=== PATIENT | male | born 1970 | race Two or more races ===

== ENCOUNTER 2018-07-14 16:26 | Emergency (ER) | payer MEDICAID ==
[~2018-07-14] VITALS: Ht 175.3 cm; Wt 86.2 kg
--- NOTE | 2018-07-14 16:22 | NUR ---
ED Nurse Note: pt brought in by gadiel Ortiz c/o heroin withdrawal sx, sleep insomnia, nausea, body ache and hand tremors per pt report. Pt reports he was at [facility] yesterday but didn't receive any help and was concerned. Pt currently homeless, req senior care. pt AA&ox4, gcs=15, skin warm and dry, resp even and unlabored on RA, no active dry heaves nor vomiting noted at this time, vss, sinus tach on potline monitor, will cont monitor. Report given to SONJA Kenney.
[2018-07-14] MEDS ORDERED: Phenytoin 500 MG in NS 110 ML IVPB STA (16:40)
[2018-07-14 16:45] VITALS: BP 118/83
[2018-07-14] MEDS ORDERED: Phenytoin 100mg cap ORAL ONE ×2 (16:45→18:00)
[2018-07-14] MEDS ORDERED: Ketorolac 30mg Inj IV ONE ×2 (16:45→19:30)
--- NOTE | 2018-07-14 16:49 | Emergency Room Report ---
History of Present Illness General Chief Complaint: Substance Abuse Source: Patient Present Illness HPI Patient presents with pedal withdrawal. Apparently he was seen recently at [facility]. He was asking to be transported to a rehabilitation facility. They stated they couldn't do that for him. He last used 3 days ago. Is complaining about pain in his legs and cramping in his abdomen. He also complains about anxiety and nausea. He's felt feverish without documented fever. He denies suicidal or homicidal ideation at this time. He just wants to go to a rehabilitation facility. He injects 1/2 gram a day. The patient also has a history of seizures. He states the last time he took Dilantin was 3 days ago. His last seizure was 2 days ago. The patient denies hepatitis C and HIV. He also states that his last tetanus was 6 months ago. Allergies: Coded Allergies: QUETIAPINE (Verified Allergy, Unknown, 07/14/18) TRAZODONE (Verified Allergy, Unknown, 07/14/18) Patient History Past Medical History: see triage record Social History: Reports: smoking, drug use - heroine - see tox Social History Narrative trying to get into rehab Reviewed Nursing Documentation: PMH: Agreed; PSxH: Agreed Nursing Documentation-PMH Past Medical History: No History, Except For Review of Systems All Other Systems: negative except mentioned in HPI Physical Exam Vital Signs Date Time Temp Pulse Resp B/P (MAP) Pulse Ox O2 Delivery O2 Flow Rate FiO2 07/14/18 16:19 98.6 120 18 129/84 96 Room Air Sp02 EP Interpretation: reviewed, normal General Appearance: well appearing, no apparent distress, GCS 15 Head: normocephalic Eyes: bilateral eye normal inspection, bilateral eye PERRL, bilateral eye EOMI ENT: moist mucus membranes Neck: supple Respiratory: lungs clear, normal breath sounds Cardiovascular #1: regular rate, rhythm Cardiovascular #2: 2+ radial (R) Gastrointestinal: normal inspection, normal bowel sounds, non tender, no mass, non-distended Genitourinary: no CVA tenderness Musculoskeletal: back normal, gait/station normal, normal range of motion Neurologic: alert, oriented x3, grossly normal Psychiatric: mood/affect normal, no suicidal/homicidal ideation Skin: warm/dry, other - abrasions R hand Medical Decision Making Diagnostic Impression: Primary Impression: Opiate withdrawal Additional Impressions: Substance abuse Medical non-compliance ER Course Patient presents complaining of opiate withdrawal. In addition he's been noncompliant with his seizure medication. I differential includes opiate withdrawal, which light imbalance, drug seeking behavior amongst others. He'll be evaluated with EKG, chest x-ray and labs. He will receive IV hydration. In addition he will receive Pepcid and Toradol Dilantin Zofran. EKG sinus tachycardia rate [address]-T wave changes. CXR clear. Labs unremarkable except for + THC and amphetamine. Dilantin nil. UA with pyuria. Dilantin loaded. Improved. Still c/o pain. Rocephin given. Toradol repeated. Patient looking for rehab where he wants to go. Gave a phone number. I was going to call to consider sending the patient. Patient abruptly decided to leave without discharge paperwork. Laboratory Tests Test 07/14/18 16:35 White Blood Count 10.5 K/UL (4.8-10.8) Red Blood Count 5.09 M/UL (4.70-6.10) Hemoglobin 15.1 G/DL (14.2-18.0) Hematocrit 43.4 % (42.0-52.0) Mean Corpuscular Volume 85 FL (80-99) Mean Corpuscular Hemoglobin 29.7 PG (27.0-31.0) Mean Corpuscular Hemoglobin Concent 34.9 G/DL (32.0-36.0) Red Cell Distribution Width 11.6 % (11.6-14.8) Platelet Count 327 K/UL (150-450) Mean Platelet Volume 7.0 FL (6.5-10.1) Neutrophils (%) (Auto) 59.1 % (45.0-75.0) Lymphocytes (%) (Auto) 28.0 % (20.0-45.0) Monocytes (%) (Auto) 9.7 % (1.0-10.0) Eosinophils (%) (Auto) 2.1 % (0.0-3.0) Basophils (%) (Auto) 1.1 % (0.0-2.0) Urine Color Yellow Urine Appearance Slightly cloudy Urine pH 5 (4.5-8.0) Urine Specific [place] 1.025 (1.005-1.035) Urine Protein 2+ (NEGATIVE) H Urine Glucose (UA) Negative (NEGATIVE) Urine Ketones 1+ (NEGATIVE) H Urine Blood 1+ (NEGATIVE) H Urine Nitrite Negative (NEGATIVE) Urine Bilirubin 1+ (NEGATIVE) H Urine Ictotest Negative (NEGATIVE) Urine Urobilinogen 1 MG/DL (0.0-1.0) H Urine Leukocyte Esterase 1+ (NEGATIVE) H Urine RBC 2-4 /HPF (0 - 0) H Urine WBC 5-10 /HPF (0 - 0) H Urine Squamous Epithelial Cells None /LPF (NONE/OCC) Urine Bacteria Few /HPF (NONE) Urine Mucus Moderate /LPF (NONE/OCC) H Sodium Level 142 MMOL/L (136-145) Potassium Level 3.9 MMOL/L (3.5-5.1) Chloride Level 105 MMOL/L (98-107) Carbon Dioxide Level 26 MMOL/L (21-32) Anion Gap 11 mmol/L (5-15) Blood Urea Nitrogen 14 mg/dL (7-18) Creatinine 1.1 MG/DL (0.55-1.30) Estimate Glomerular Filtration Rate > 60 mL/min (>60) Glucose Level 117 MG/DL (74-106) H Calcium Level 9.3 MG/DL (8.5-10.1) Total Bilirubin 0.7 MG/DL (0.2-1.0) Aspartate Amino Transferase (AST) 63 U/L (15-37) H Alanine Aminotransferase (ALT) 123 U/L (12-78) H Alkaline Phosphatase 106 U/L (46-116) Total Creatine Kinase 1547 U/L (26-308) H Total Protein 7.7 G/DL (6.4-8.2) Albumin 3.8 G/DL (3.4-5.0) Globulin 3.9 g/dL Albumin/Globulin Ratio 1.0 (1.0-2.7) Salicylates Level 1.7 ug/mL (2.8-20) L Urine Opiates Screen Negative (NEGATIVE) Acetaminophen Level < 2 MCG/ML (10-30) L Urine Barbiturates Screen Negative (NEGATIVE) Phenytoin (Dilantin) Level < 0.5 ug/mL (10-20) L Phencyclidine (PCP) Screen Negative (NEGATIVE) Urine Amphetamines Screen Positive (NEGATIVE) H Urine Benzodiazepines Screen Negative (NEGATIVE) Urine Cocaine Screen Negative (NEGATIVE) Urine Marijuana (THC) Screen Positive (NEGATIVE) H Serum Alcohol < 3 mg/dL EKG Diagnostic Results Rate: tachycardiac Rhythm: NSR ST Segments: no acute changes Rhythm Strip Diag. Results EP Interpretation: yes Rhythm: no PVC's, no ectopy, other - Sinus tachycardia Chest X-Ray Diagnostic Results Chest X-Ray Diagnostic Results : Chest X-Ray Ordered: Yes # of Views/Limited/Complete: 1 View Indication: Other EP Interpretation: Yes Interpretation: no consolidation, no effusion, no pneumothorax Impression: No acute disease Electronically Signed by: Electronically signed by Miguel Angel Miner MD Last Vital Signs Date Time Temp Pulse Resp B/P (MAP) Pulse Ox O2 Delivery O2 Flow Rate FiO2 07/14/18 20:03 98.6 110 20 118/83 96 Room Air Status: improved Disposition: HOME, SELF-CARE Condition: Improved Scripts Ibuprofen* (MOTRIN*) 600 Mg Tablet 600 MG ORAL Q6H PRN for For Pain, #16 TAB Prov: Miguel Angel Miner MD 07/14/18 Ondansetron Odt* (ZOFRAN ODT*) 4 Mg Tab.rapdis 4 MG BC EVERY 8 HOURS, #6 TAB 0 Refills Prov: Miguel Angel Miner MD 07/14/18 Miguel Angel Miner MD Jul 14, 2018 16:49
--- NOTE | 2018-07-14 16:54 | NUR ---
ED Nurse Note: Per ERMD that it's ok to give dilantin IVPB but he will cancel the oral dilantin.
[2018-07-14 16:57] LABS: BILIRUBIN, URINE 1+ (NEGATIVE); GLUCOSE, URINE (UA) NEGATIVE (NEGATIVE); KETONES,URINE 1+ (NEGATIVE); LEUKOCYTE ESTERASE ,URINE 1+ (NEGATIVE); NITRITE,URINE NEGATIVE (NEGATIVE); PH,URINE 5 (4.5-8.0); PROTEIN,URINE 2+ (NEGATIVE); UROBILINOGEN,URINE 1 MG/DL (0.0-1.0)
[2018-07-14 17:00] LABS: COLOR,URINE YELLOW
[2018-07-14 17:02] LABS: BASOPHILS % (AUTO) 1.1 % (0.0-2.0); EOSINOPHILS % (AUTO) 2.1 % (0.0-3.0); HEMATOCRIT 43.4 % (42.0-52.0); HEMOGLOBIN 15.1 G/DL (14.2-18.0); MEAN CORPUSCULAR VOLUME 85 FL (80-99); MONOCYTES % (AUTO) 9.7 % (1.0-10.0); NEUTROPHILS % (AUTO) 59.1 % (45.0-75.0); PLATELET COUNT 327 K/UL (150-450); RED BLOOD COUNT 5.09 M/UL (4.70-6.10); RED CELL DISTRIBUTION WIDTH 11.6 % (11.6-14.8); WHITE BLOOD COUNT 10.5 K/UL (4.8-10.8)
[2018-07-14 17:05] LABS: ANION GAP 11 mmol/L (5-15); BLOOD UREA NITROGEN 14 mg/dL (7-18); CALCIUM 9.3 MG/DL (8.5-10.1); CARBON DIOXIDE 26 MMOL/L (21-32); CHLORIDE 105 MMOL/L (98-107); CREATININE 1.1 MG/DL (0.55-1.30); POTASSIUM 3.9 MMOL/L (3.5-5.1); SODIUM 142 MMOL/L (136-145)
[2018-07-14 17:10] LABS: APPEARANCE,URINE SLIGHTLY CLOUDY
[2018-07-14 17:19] LABS: ALANINE AMINOTRANSFERASE 123 U/L (12-78); ALBUMIN 3.8 G/DL (3.4-5.0); ALKALINE PHOSPHATASE 106 U/L (46-116); ASPARTATE AMINO TRANSFERASE 63 U/L (15-37); BILIRUBIN,TOTAL 0.7 MG/DL (0.2-1.0); CREATINE KINASE 1547 U/L (26-308)
--- NOTE | 2018-07-14 19:02 | NUR ---
HAND-OFF: Report given to SONJA Blue. No s/s of distress.
[2018-07-14] MEDS ORDERED: cefTRIAXone 1 GM in NS 55 ML IVPB ONE (19:30)
[2018-07-14] MEDS ORDERED: Cephalexin 500mg cap ORAL ONE (20:00)
--- NOTE | 2018-07-14 20:02 | NUR ---
ED Nurse Note: Patient cleared for discharge by [facility]. Patient IV access and ID band removed. Patient took all personal belongings with him. Patient left without signing discharge papers. Patient AOx4, VSS, ambulatory with steady gait, no s/s of acute distress noted at this time. Patient instructed to follow up with PCP within 1 day.
[2018-07-14 20:03] VITALS: BP 118/83
[2018-07-14] MEDS ORDERED: ONDANSETRON ODT4 MG BC (20:21)
[2018-07-14] MEDS ORDERED: IBUPROFEN600 MG ORAL (20:21)
== END 2018-07-14 20:33 | disposition home or self-care (01) ==
LOC: EDBD 16:26 → EMR 16:54
DX: F11.23 Opioid dependence with withdrawal (principal); T40.2X5A Adverse effect of other opioids, initial encounter; Y92.9 Unspecified place or not applicable; F41.9 Anxiety disorder, unspecified; R11.0 Nausea; Z88.8 Allergy status to other drugs, medicaments and biological substances; F17.200 Nicotine dependence, unspecified, uncomplicated; G40.909 Epilepsy, unspecified, not intractable, without status epilepticus; R00.0 Tachycardia, unspecified
CPT/HCPCS: 36415; 71045; 80053; 80185; 80307; 80329; 81003; 82550; 85025; 93005; 96361; 96365; 96368; 96375; 99284; J0696; J1165; J1885; J2405; S0028